=== PATIENT | female | born 1975 | race Caucasian/White ===

== ENCOUNTER 2021-02-09 15:05 | Emergency (ER) | payer BC, SELFPAY ==
[2021-02-09 15:10] VITALS: BP 142/93; PULSE 81; RESP 16; TEMP 36.1; O2SAT 100
[2021-02-09 15:25] LABS: Basophils Percent Auto 0.5 % (0.2-1.2); Eosinophils Absolute Auto 0.1 K/mm3 (0-0.3); Eosinophils Percent Auto 1.7 % (0-4.4); Hemoglobin 12.8 g/dL (12.0-15.0); Immature Granulocyte Absolute 0.02 K/mm3 (0.00-0.031); Immature Granulocyte Percent A 0.3 % (0-0.5); Lymphocytes Absolute Auto 1.33 K/mm3 (0.9-3.2); Mean Corpuscular HGB Conc 33.7 g/dl (32-36); Mean Corpuscular Hemoglobin 30.6 pg (26-34); Mean Corpuscular Volume 90.9 fl (80-100); Mean Platelet Volume 10.1 fl (7.4-10.4); Monocytes Absolute Auto 0.4 K/mm3 (0.1-0.6); Neutrophils Absolute Auto 4.8 K/mm3 (1.3-6.7); Neutrophils Percent Auto 71.5 % (45.5-73.1); Platelet Count Result 284 k/mm3 (150-375); Red Blood Count 4.18 M/mm3 (4.2-5.4); Red Cell Distribution Width 12.5 % (11.5-14.5); White Blood Count 6.6 K/mm3 (4.5-10.0)
--- NOTE | 2021-02-09 16:32 | ED.FEMALEGU ---
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 Patient called her PASSENGER SERVICE AGENT in [place] who told her go to the emergency room immediately. Patient denies any dizziness, lightheadedness, chest pain, shortness of breath, patient is not sexually active.. History of IBS, does not smoke or drink or uses drugs. Patient is telling me that she been having irregular menstrual cycle for 1 year. Related Data Allergies Allergy/AdvReac Type Severity Reaction Status Date / Time No Known Allergies Allergy Verified 02/09/21 15:32 Review of Systems Review of Systems: CONSTITUTIONAL: Denies fever, chills, or sweats. EYES: Denies visual changes, redness, or discharge. ENT: Denies rhinorrhea, congestion, sore throat, or otalgia. CARDIOVASCULAR: Denies chest pain, palpitations, or edema. RESPIRATORY: Denies cough or dyspnea. GASTROINTESTINAL: Denies abdominal pain, nausea, vomiting, or diarrhea. GENITOURINARY: Denies dysuria or hematuria. SKIN: Denies rash or itching. MUSCULOSKELETAL: Denies back pain, joint pain, or myalgia. NEUROLOGIC: Denies headache, numbness, or weakness. PSYCHIATRIC: Denies anxiety or depression. Exam Narrative: General appearance: Well-developed, well-nourished Skin: Normal color Head: Normocephalic, nontraumatic Eyes: Clear conjunctiva ENT: Oropharynx normal, ears normal, nose normal Neck: Supple, nontender Chest and respiratory: Airway patent, no respiratory distress, no accessory muscle use Heart: Regular rate/rhythm Abdomen: Soft, nontender, no organomegaly, quiet bowel sounds Vascular: Normal peripheral pulses, normal capillary refill. Musculoskeletal: Normal range of motion, nontender back Neurologic: Alert and oriented ?3, HOME OFFICE CLAIMS EXAMINER is normal as tested, no gross motor deficit Course Course Emergency Course: Stable Consultations Consultation #1: Dr. Shafer, our PASSENGER SERVICE AGENT on-call, Recommend to send patient home on Provera 1 tablet once a day for 90 days. And to follow-up with her PASSENGER SERVICE AGENT. Date: 02/09/21 Time: 16:45 Vital Signs Vital signs: Vital Signs Temperature 36.1 C L 02/09/21 15:10 Pulse Rate 81 02/09/21 15:10 Respiratory Rate 16 02/09/21 15:10 Blood Pressure 142/93 H 02/09/21 15:10 Pulse Oximetry 100 02/09/21 15:10 Temperature 36.1 C L 02/09/21 15:10 Pulse Rate 81 02/09/21 15:10 Respiratory Rate 16 02/09/21 15:10 Blood Pressure 142/93 H 02/09/21 15:10 Pulse Oximetry 100 02/09/21 15:10 MDM - Female Genitourinary MDM Narrative Medical decision making narrative: Patient declined pelvic exam. Here patient is hemodynamically stable, hemoglobin within normal limit, patient will be discharged home on Provera discussed with Dr. Shafer our PASSENGER SERVICE AGENT on-call Differential Diagnosis Differential diagnosis: Likely other (Dysfunctional uterine bleeding) Lab Data Result diagrams: 02/09/21 15:15 Labs: Lab Results 02/09/21 Range/Units 15:15 WBC 6.6 (4.5-10.0) K/mm3 RBC 4.18 L (4.2-5.4) M/mm3 Hgb 12.8 (12.0-15.0) g/dL Hct 38.0 (37.0-47.0) % MCV 90.9 (80-100) fl MCH 30.6 (26-34) pg MCHC 33.7 (32-36) g/dl RDW 12.5 (11.5-14.5) % Plt Count 284 (150-375) k/mm3 MPV 10.1 (7.4-10.4) fl Immature Gran % (Auto) 0.3 (0-0.5) % Neut % (Auto) 71.5 (45.5-73.1) % Lymph % (Auto) 20.0 (18.3-44.2) % [place] % (Auto) 6.0 (2.6-8.5) % Eos % (Auto) 1.7 (
[2021-02-09 16:45] VITALS: BP 127/91; PULSE 74; RESP 18; O2SAT 98
== END 2021-02-09 16:50 | disposition home or self-care (01) ==
PROVIDERS: Emergency Provider Emergency Medicine
DX: N93.8 Other specified abnormal uterine and vaginal bleeding (principal)
CPT/HCPCS: 36415; 85025; 99283